=== PATIENT | female | born 1995 | race Caucasian/White ===

== ENCOUNTER 2017-05-17 23:06 | Inpatient (IN) ==
[~2017-05-17 23:06] MED LIST: AMPICILLIN 2 GM in NS 100 ML IV ONE
[2017-05-17] MEDS ORDERED: CARBOPROST 250 MCG/ML INJECTION IM PRN (23:48)
[2017-05-17] MEDS ORDERED: LR 1,000 ML IV PRN (23:48)
[2017-05-17] MEDS ORDERED: ACETAMINOPHEN 500 MG TABLET PO PRN (23:48)
[2017-05-17] MEDS ORDERED: METHYLERGONOVINE 0.2 MG/ML INJECTION IM PRN (23:48)
[2017-05-17] MEDS ORDERED: MAG-AL + SIM ORAL LIQUID 30ml PO PRN (23:48)
[2017-05-17] MEDS ORDERED: CALCIUM CARBONATE Chewable 500mg TABLET PO PRN (23:48)
[2017-05-17] MEDS ORDERED: LIDOCAINE 1% (10mg/ml) 2mL INJ PF SDV ID PRN (23:48)
[2017-05-18] MEDS ORDERED: HYDROCORTISONE 2.5% CREAM 30gm RECTALLY PRN (00:14)
[2017-05-18] MEDS ORDERED: HYDROCODONE/APAP 5mg/325mg TABLET PO PRN (00:14)
[2017-05-18] MEDS ORDERED: DiphenhydrAMINE 25 MG CAPSULE PO PRN (00:14)
[2017-05-18] MEDS ORDERED: SALINE FLUSH 10ml SYRINGE IVF PRN (00:14)
[2017-05-18] MEDS ORDERED: OXYTOCIN DRIP 30 UNIT/500 ML ML IV SCH (00:15)
[2017-05-18] MEDS: IBUPROFEN 800 MG TABLET PO PRN ×2 (00:16→16:46)
[2017-05-18 02:41] VITALS: BMI 24.5
--- NOTE | 2017-05-18 09:16 | Labor and Delivery Note ---
DATE OF DELIVERY: 05/17/2017 BRIEF DESCRIPTION Sheri is a 21-year-old, 2, para 1 at 38 weeks 2 days gestational age who presented to [facility] with complaints of contractions and was found to be 6 cm dilated. On my arrival she was 8 cm and her membranes ruptured with the nurse's check returning clear fluids. Within a few minutes she was AC and + 2. I was able to put in the left half of her pudendal block. I gently reduced the remainder of her cervix and she quickly had a spontaneous vaginal delivery of a viable female infant, Apgars 8/9, weight 2995 g, name "Mckayla." Baby was vigorous at delivery so she was placed on mom's abdomen and the cord clamping was delayed for more than 2 minutes. The placenta delivered spontaneously. She had no lacerations. She received one dose of antibiotics for her group B strep. Mom and baby tolerated the delivery well. MTDD
[2017-05-19] MEDS: DOCUSATE CALCIUM 240 MG CAPSULE PO SCH ×2 (05:55→10:51)
[2017-05-19 06:50] VITALS: RESP 16
--- NOTE | 2017-05-19 07:59 | OB/GYN Progress Note ---
OB-PP Progress Note - General PPD2 Maternal Group B Strep: Positive Maternal blood type: O+ Maternal Rubella Status: Immune - Subjective Date: 05/19/17 Lochia: Minimal Pain: contolled Voiding: voiding - Objective Vital Signs: Last Vital Signs Temp 97.9 F 05/19/17 06:48 Pulse 75 05/19/17 06:48 Resp 16 05/19/17 06:48 BP 121/68 05/19/17 06:48 Pulse Ox 99 05/19/17 06:48 Urine Output: good General: alert and oriented - Assessment Assessment: , GBS positive - Plan Plan: routine care, discharge home, continue PNV
--- NOTE | 2017-05-19 08:02 | Discharge Instructions ---
Discharge Plan - Med Rec/Dispo Prescriptions: New Hydrocodone/APAP 5/325 [[place] 5/325] 1 - 2 tab PO Q4H PRN #20 tablet PRN Reason: Pain Ibuprofen [Motrin] 800 mg PO Q8H PRN #30 tablet PRN Reason: Pain Discharge Instructions/Outpatient Orders: Final Provider Discharge Instructions Location: Determined By Patient - Disposition 01 Discharged Home, Self-Care
[2017-05-19] MEDS: IBUPROFEN 800 MG TABLET PO PRN (11:14)
[2017-05-20] MEDS: IBUPROFEN 800 MG TABLET PO PRN (03:48)
[2017-05-20 04:01] VITALS: BP 120/74; PULSE 92; TEMP 98.6; O2SAT 99
--- NOTE | 2017-05-20 08:09 | OB/GYN Progress Note ---
OB-PP Progress Note - General PPD2 - Subjective Date: 05/20/17 Lochia: Minimal Pain: contolled Voiding: voiding - Objective Vital Signs: Last Vital Signs Temp 98.6 F 05/20/17 03:59 Pulse 92 05/20/17 03:59 Resp 16 05/20/17 03:59 BP 120/74 05/20/17 03:59 Pulse Ox 99 05/20/17 03:59 Urine Output: good General: alert and oriented Extremities: non-tender Edema: none - Assessment Assessment: - Plan Plan: discharge home
== END 2017-05-20 09:25 | disposition home or self-care (01) | DRG 775 ==
LOC: OBOBS 23:06 → MC 23:07
PROVIDERS: ADMIT Obstetrics & Gynecology; ATTEND Obstetrics & Gynecology